=== PATIENT | female | born 1955 | race Asian ===

== ENCOUNTER 2017-11-13 07:47 | Day surgery (SDC) | payer MEDICARE, OTHER ==
[2017-11-13] MEDS ORDERED: MIDAZOLAM 1 MG/ML 2 ML INJ ×2 (10:06)
[2017-11-13] MEDS ORDERED: FENTAnyl 50 MCG/ML VIAL (10:06)
== END 2017-11-13 12:19 | disposition home or self-care (01) ==
LOC: GIL 07:47
DX: Z85.038 Personal history of other malignant neoplasm of large intestine (principal); K64.4 Residual hemorrhoidal skin tags
CPT/HCPCS: 45378; 82962

== ENCOUNTER 2017-11-17 22:00 | Inpatient (IN) | payer MEDICARE, OTHER ==
[2017-11-17] MEDS: morphine 4 MG/ML VIAL IV (22:32)
[2017-11-17] MEDS: SOD CHLORIDE 0.9% 1,000 ML IV (22:32)
[2017-11-17] MEDS: ONDANSETRON 4 MG INJ IV (22:32)
[2017-11-17 22:44] LABS: ADD MAN DIFF? NO
[2017-11-17 22:46] LABS: WHITE BLOOD COUNT 11.6 10^3/ul (4.8-10.8)
[2017-11-17 22:46] LABS: BASOPHIL # 0.1 10^3/ul (0.0-0.1); BASOPHILS % 0.8 % (0.0-2.0); EOSINOPHILS # 0.2 10^3/ul (0.0-0.5); EOSINOPHILS % 1.8 % (0.0-7.0); HEMATOCRIT 45.1 % (37.0-47.0); HEMOGLOBIN 15.3 g/dl (12.0-16.0); LYMPHOCYTES # 2.9 10^3/ul (0.8-2.9); LYMPHOCYTES % 25.1 % (15.0-51.0); MEAN CORPUSCULAR HEMOGLOBIN 31.2 pg (29.0-33.0); MEAN CORPUSCULAR HGB CONC 33.9 g/dl (32.0-37.0); MEAN CORPUSCULAR VOLUME 91.9 fl (82.0-101.0); MEAN PLATELET VOLUME 9.9 fl (7.4-10.4); MONOCYTES % 8.6 % (0.0-11.0); NEUTROPHIL # 7.4 10^3/ul (1.6-7.5); NEUTROPHILS % 63.4 % (39.0-77.0); PLATELET COUNT 276 10^3/UL (140-415); RED BLOOD COUNT 4.91 10^6/ul (4.20-5.40); RED CELL DISTRIBUTION WIDTH 12.1 % (11.5-14.5)
[2017-11-17 23:03] LABS: ALANINE AMINOTRANSFERASE 114 IU/L (13-69); ALBUMIN 4.3 g/dl (3.3-4.9); ALKALINE PHOSPHATASE 71 IU/L (42-121); ANION GAP 13 (8-16); ASPARTATE AMINO TRANSFERASE 189 IU/L (15-46); BILIRUBIN,INDIRECT 0.8 mg/dl (0-1.1); BILIRUBIN,TOTAL 0.8 mg/dl (0.2-1.3); BLOOD UREA NITROGEN 17 mg/dl (7-20); CALCIUM 9.9 mg/dl (8.4-10.2); CARBON DIOXIDE 31 mmol/L (21-31); CHLORIDE 99 mmol/L (97-110); CREATININE 0.75 mg/dl (0.44-1.00); GLUCOSE 222 mg/dl (70-220); LIPASE 222 U/L (23-300); POTASSIUM 3.9 mmol/L (3.5-5.1); SODIUM 139 mmol/L (135-144); TOTAL PROTEIN 8.2 g/dl (6.1-8.1)
[2017-11-17 23:22] LABS: TROPONIN-I < 0.012 ng/ml (0.000-0.120)
[2017-11-18] MEDS ORDERED: ACETAMINOPHEN 325 MG TAB PO (03:00)
[2017-11-18] MEDS ORDERED: ONDANSETRON 4 MG INJ IV ×2 (03:00→03:30)
[2017-11-18] MEDS ORDERED: ACETAMINOPHEN 650 MG SUPP PR (03:30)
[2017-11-18] MEDS ORDERED: HYDROmorphONE 0.5 MG/0.5 ML SYG IV (03:30)
[2017-11-18] MEDS ORDERED: NACL 0.9% 3 ML SYG IV (03:30)
[2017-11-18] MEDS: DEXTROSE 5%-0.45% NACL 1,000 ML IV ×3 (04:12→23:21)
[2017-11-18] MEDS ORDERED: GLUCOSE GEL 15 GRAM TUBE PO ×2 (05:30)
[2017-11-18] MEDS ORDERED: GLUCAGON 1 MG INJ IM (05:30)
[2017-11-18] MEDS ORDERED: DEXTROSE 50% 50 ML SYRINGE IV ×2 (05:30)
[2017-11-18] MEDS ORDERED: GLUCOSE GEL 15 GRAM TUBE BUCCAL (05:30)
[2017-11-18] MEDS: INSULIN ASPART [NOVOLOG] 3 ML PEN SC ×5 (05:33→21:22)
[2017-11-18 05:51] LABS: ADD MAN DIFF? NO
[2017-11-18 06:02] LABS: BASOPHIL # 0.1 10^3/ul (0.0-0.1); BASOPHILS % 0.8 % (0.0-2.0); EOSINOPHILS # 0.2 10^3/ul (0.0-0.5); EOSINOPHILS % 1.7 % (0.0-7.0); HEMOGLOBIN 13.7 g/dl (12.0-16.0); LYMPHOCYTES # 3.3 10^3/ul (0.8-2.9); LYMPHOCYTES % 32.7 % (15.0-51.0); MEAN CORPUSCULAR HEMOGLOBIN 31.2 pg (29.0-33.0); MEAN CORPUSCULAR HGB CONC 33.4 g/dl (32.0-37.0); MEAN CORPUSCULAR VOLUME 93.4 fl (82.0-101.0); MEAN PLATELET VOLUME 10.1 fl (7.4-10.4); MONOCYTE # 0.9 10^3/ul (0.3-0.9); MONOCYTES % 9.2 % (0.0-11.0); NEUTROPHIL # 5.6 10^3/ul (1.6-7.5); NEUTROPHILS % 55.4 % (39.0-77.0); PLATELET COUNT 252 10^3/UL (140-415); RED BLOOD COUNT 4.39 10^6/ul (4.20-5.40); RED CELL DISTRIBUTION WIDTH 12.3 % (11.5-14.5)
[2017-11-18 06:02] LABS: WHITE BLOOD COUNT 10.1 10^3/ul (4.8-10.8)
[2017-11-18 06:21] LABS: ALANINE AMINOTRANSFERASE 88 IU/L (13-69); ALBUMIN 3.4 g/dl (3.3-4.9); ALBUMIN/GLOBULIN RATIO 0.97; ALKALINE PHOSPHATASE 52 IU/L (42-121); ANION GAP 10 (8-16); ASPARTATE AMINO TRANSFERASE 132 IU/L (15-46); BILIRUBIN,INDIRECT 0.8 mg/dl (0-1.1); BILIRUBIN,TOTAL 0.8 mg/dl (0.2-1.3); BLOOD UREA NITROGEN 14 mg/dl (7-20); CALCIUM 8.8 mg/dl (8.4-10.2); CARBON DIOXIDE 33 mmol/L (21-31); CHLORIDE 101 mmol/L (97-110); CHOLESTEROL 135 mg/dl (100-200); CREATININE 0.72 mg/dl (0.44-1.00); GLUCOSE 213 mg/dl (70-220); HDL CHOLESTEROL 45 mg/dl (35-98); LDL CHOLESTEROL,CALCULATED 66 mg/dl; MAGNESIUM 1.6 mg/dl (1.7-2.5); POTASSIUM 3.6 mmol/L (3.5-5.1); SODIUM 140 mmol/L (135-144); TOTAL PROTEIN 6.9 g/dl (6.1-8.1); TRIGLYCERIDES 118 mg/dl (0-149)
[2017-11-18 06:21] LABS: HEMOGLOBIN A1C 8.1 % (0-5.9)
[2017-11-18] MEDS: MAGNESIUM SULFATE 2 GM/50 ML 50 ML IVPB (13:50)
[2017-11-19] MEDS: INSULIN ASPART [NOVOLOG] 3 ML PEN SC ×6 (01:20→20:56)
[2017-11-19] MEDS: ACCU-CHEK XX (01:21)
[2017-11-19] MEDS: DEXTROSE 5%-0.45% NACL 1,000 ML IV ×3 (03:26→13:48)
[2017-11-19 05:53] LABS: ADD MAN DIFF? NO
[2017-11-19 05:59] LABS: BASOPHIL # 0.1 10^3/ul (0.0-0.1); BASOPHILS % 0.7 % (0.0-2.0); EOSINOPHILS # 0.3 10^3/ul (0.0-0.5); EOSINOPHILS % 3.9 % (0.0-7.0); HEMATOCRIT 39.5 % (37.0-47.0); HEMOGLOBIN 13.1 g/dl (12.0-16.0); LYMPHOCYTES # 2.7 10^3/ul (0.8-2.9); MEAN CORPUSCULAR HEMOGLOBIN 31.1 pg (29.0-33.0); MEAN CORPUSCULAR HGB CONC 33.2 g/dl (32.0-37.0); MEAN CORPUSCULAR VOLUME 93.8 fl (82.0-101.0); MEAN PLATELET VOLUME 10.1 fl (7.4-10.4); MONOCYTE # 0.8 10^3/ul (0.3-0.9); MONOCYTES % 11.5 % (0.0-11.0); NEUTROPHIL # 3.2 10^3/ul (1.6-7.5); NEUTROPHILS % 45.6 % (39.0-77.0); PLATELET COUNT 211 10^3/UL (140-415); RED BLOOD COUNT 4.21 10^6/ul (4.20-5.40); RED CELL DISTRIBUTION WIDTH 12.4 % (11.5-14.5)
[2017-11-19 06:44] LABS: ALANINE AMINOTRANSFERASE 83 IU/L (13-69); ALBUMIN 3.3 g/dl (3.3-4.9); ALBUMIN/GLOBULIN RATIO 0.97; ALKALINE PHOSPHATASE 47 IU/L (42-121); ANION GAP 11 (8-16); ASPARTATE AMINO TRANSFERASE 159 IU/L (15-46); BILIRUBIN,INDIRECT 0.8 mg/dl (0-1.1); BILIRUBIN,TOTAL 0.8 mg/dl (0.2-1.3); BLOOD UREA NITROGEN 7 mg/dl (7-20); CARBON DIOXIDE 30 mmol/L (21-31); CHLORIDE 105 mmol/L (97-110); CREATININE 0.69 mg/dl (0.44-1.00); GLUCOSE 202 mg/dl (70-220); LIPASE 128 U/L (23-300); POTASSIUM 3.3 mmol/L (3.5-5.1); SODIUM 143 mmol/L (135-144); TOTAL PROTEIN 6.7 g/dl (6.1-8.1)
[2017-11-19] MEDS: POTASSIUM CHLORIDE 50 ML IVPB ×2 (14:44→17:36)
[2017-11-19] MEDS: CYCLOBENZAPRINE 10 MG TAB PO (17:42)
[2017-11-19] MEDS: CALCIUM/VITAMIN D (500/200) TAB PO (20:53)
[2017-11-20] MEDS: INSULIN ASPART [NOVOLOG] 3 ML PEN SC ×5 (01:43→17:30)
[2017-11-20] MEDS: ACCU-CHEK XX (02:23)
[2017-11-20] MEDS: DEXTROSE 5%-0.45% NACL 1,000 ML IV (03:09)
[2017-11-20 06:37] LABS: ALANINE AMINOTRANSFERASE 75 IU/L (13-69); ALBUMIN 3.3 g/dl (3.3-4.9); ALKALINE PHOSPHATASE 50 IU/L (42-121); ANION GAP 11 (8-16); ASPARTATE AMINO TRANSFERASE 99 IU/L (15-46); BILIRUBIN,INDIRECT 0.8 mg/dl (0-1.1); BILIRUBIN,TOTAL 0.8 mg/dl (0.2-1.3); BLOOD UREA NITROGEN 5 mg/dl (7-20); CALCIUM 8.8 mg/dl (8.4-10.2); CARBON DIOXIDE 29 mmol/L (21-31); CHLORIDE 109 mmol/L (97-110); CREATININE 0.68 mg/dl (0.44-1.00); GLUCOSE 209 mg/dl (70-220); POTASSIUM 3.9 mmol/L (3.5-5.1); SODIUM 145 mmol/L (135-144); TOTAL PROTEIN 6.6 g/dl (6.1-8.1)
[2017-11-20] MEDS: DIATR MEGLU/DIATRIZOATE SODIUM 120 ML BTL (08:40)
[2017-11-20] MEDS: CALCIUM/VITAMIN D (500/200) TAB PO ×2 (17:22→20:47)
[2017-11-20] MEDS: HYDROCHLOROTHIAZIDE 25 MG TAB PO (17:22)
[2017-11-20] MEDS: LOSARTAN 50 MG TAB PO (17:22)
[2017-11-20] MEDS: ASPIRIN (EC) 81 MG TAB PO (17:22)
[2017-11-20] MEDS: ATENOLOL 100 MG TAB PO (17:22)
[2017-11-20] MEDS: MINERAL OIL 30ML CUP PO (20:47)
[2017-11-20] MEDS: Insulin NOVOLOG SS MILD Algorithm (SS with meals and bedtime) SC (20:51)
[2017-11-20] MEDS ORDERED: INSULIN ASPART [NOVOLOG] 3 ML PEN SC (21:00)
[2017-11-21] MEDS: ACCUCHECK AT 2AM (Patients on SS coverage) XX (02:11)
[2017-11-21] MEDS: ATENOLOL 100 MG TAB PO (08:30)
[2017-11-21] MEDS: HYDROCHLOROTHIAZIDE 25 MG TAB PO (08:30)
[2017-11-21] MEDS: ASPIRIN (EC) 81 MG TAB PO (08:30)
[2017-11-21] MEDS: LOSARTAN 50 MG TAB PO (08:30)
[2017-11-21] MEDS: CALCIUM/VITAMIN D (500/200) TAB PO (08:30)
[2017-11-21] MEDS: Insulin NOVOLOG SS MILD Algorithm (SS with meals and bedtime) SC (08:36)
== END 2017-11-21 10:45 | disposition home or self-care (01) | DRG 390 ==
LOC: MS2 11-18 02:40 → E/R 22:00
DX: K56.600 Partial intestinal obstruction, unspecified as to cause (principal); E83.42 Hypomagnesemia; K76.0 Fatty (change of) liver, not elsewhere classified; N28.1 Cyst of kidney, acquired; I10 Essential (primary) hypertension; E11.9 Type 2 diabetes mellitus without complications; E78.5 Hyperlipidemia, unspecified; R11.2 Nausea with vomiting, unspecified; M62.838 Other muscle spasm; R74.8 Abnormal levels of other serum enzymes; Z79.82 Long term (current) use of aspirin; Z79.84 Long term (current) use of oral hypoglycemic drugs; Z85.038 Personal history of other malignant neoplasm of large intestine
CPT/HCPCS: 36415; 71045; 74018; 74176; 74181; 74250; 76705; 80053; 80061; 82962; 83036; 83690; 83735; 84443; 84484; 85025; 93005; 96372; 96374; 96375; 99285-25